=== PATIENT | female | born 1970 | race African-American/Black ===

== ENCOUNTER 2016-11-17 09:09 | Emergency (ER) | payer OTHER ==
[~2016-11-17] VITALS: Ht 162.6 cm; Wt 86.2 kg
== END 2016-11-17 09:52 | disposition home or self-care (01) ==
LOC: CFTX 09:09 → CED 09:09 → CFTX 09:52
DX: H66.001 Acute suppurative otitis media without spontaneous rupture of ear drum, right ear (principal); R03.0 Elevated blood-pressure reading, without diagnosis of hypertension; F17.210 Nicotine dependence, cigarettes, uncomplicated
CPT/HCPCS: 99282